=== PATIENT | male | born 1975 | race Hispanic/Latino ===

== ENCOUNTER 2018-07-18 13:13 | Emergency (ER) | payer SELFPAY ==
[~2018-07-18] VITALS: Ht 170.2 cm; Wt 95.2 kg
[2018-07-18] MEDS ORDERED: ANUSOL-HC25 MG PR (14:46)
[2018-07-18] MEDS ORDERED: FLAGYL500 MG PO (14:46)
[2018-07-18] MEDS ORDERED: CIPRO500 MG PO (14:46)
[2018-07-18] MEDS ORDERED: ENULOSE10 GM/15 M PO (14:46)
== END 2018-07-18 14:59 | disposition home or self-care (01) ==
LOC: ED 13:13
DX: K57.92 Diverticulitis of intestine, part unspecified, without perforation or abscess without bleeding (principal); K64.9 Unspecified hemorrhoids; K59.00 Constipation, unspecified
CPT/HCPCS: 74018; 80053; 85025; 99284

== ENCOUNTER 2020-10-03 05:19 | Emergency (ER) | payer SELFPAY ==
[~2020-10-03] VITALS: Ht 170.2 cm; Wt 86.2 kg
[~2020-10-03 05:19] MED LIST: ANUSOL-HC25 MG PR; CIPRO500 MG PO; ENULOSE10 GM/15 M PO; FLAGYL500 MG PO
[2020-10-03] MEDS ORDERED: HYDROCODON-ACE1 EA10 PO (07:21)
== END 2020-10-03 07:30 | disposition home or self-care (01) ==
LOC: ED 05:19
DX: U07.1 COVID-19 (principal)
CPT/HCPCS: 71045; 99283-25; C9803; U0003

== ENCOUNTER 2020-10-05 05:07 | Emergency (ER) | payer SELFPAY ==
[~2020-10-05] VITALS: Ht 170.2 cm; Wt 86.2 kg
[~2020-10-05 05:07] MED LIST changes: +HYDROCODON-ACE1 EA10 PO
--- OUTSIDE RECORDS SUMMARY | 2020-10-05 05:10 | XMS ---
PreManage Notification: EVITA WHITEHEAD [employer] Events No recent Security Events currently on file CRITERIA MET - [facility] - 2 Visits in 30 Days CARE PROVIDERS There are no care providers on record at this time. Karime has no Care Guidelines for this patient. T[facility] VISIT COUNT (12 MO.) [facility] T[facility] 2 NOTE: Visits indicate total known visits. ED/C VISIT TRACKING (12 MO.) [facility] COMPLAINT: - COVID+/HEADACHE 10/03/2020 05:20 [facility] [place] TYPE: Emergency COMPLAINT: - HEAD ACHE,FEVER INPATIENT VISIT TRACKING (12 MO.) No inpatient visits to display in this time frame [email or web address]
[2020-10-05] MEDS ORDERED: ZOFRAN4 MG PO (05:45)
== END 2020-10-05 05:55 | disposition home or self-care (01) ==
LOC: ED 05:07
DX: U07.1 COVID-19 (principal); Z79.891 Long term (current) use of opiate analgesic
CPT/HCPCS: 99283

== ENCOUNTER 2022-01-06 20:14 | Emergency (ER) | payer OTHER ==
[~2022-01-06] VITALS: Ht 167.6 cm; Wt 86.2 kg
[~2022-01-06 20:14] MED LIST changes: +ZOFRAN4 MG PO
== END 2022-01-06 23:05 | disposition home or self-care (01) ==
LOC: ED 20:14
DX: S50.12XA Contusion of left forearm, initial encounter (principal); M25.572 Pain in left ankle and joints of left foot; R07.81 Pleurodynia; R51.9 Headache, unspecified; M54.2 Cervicalgia; V89.2XXA Person injured in unspecified motor-vehicle accident, traffic, initial encounter
CPT/HCPCS: 36415; 70450; 71260; 72125; 73090; 73610; 74177; 80053; 81001; 82553; 83690; 85025; 99284-25; G0480; J7121; Q9967